=== PATIENT | female | born 1975 | race Caucasian/White ===

== ENCOUNTER → 2018-03-22 | Outpatient (CLI) | payer OTHER ==
--- NOTE | 2018-03-22 17:00 | Diagnostic Imaging Report ---
PROCEDURE:SKULL SERIES COMPLETE INDICATION:Dizziness. COMPARISON:None. FINDINGS: See conclusion. CONCLUSION: No displaced skull fracture visualized. Paranasal sinuses are well aerated. No air-fluid levels. If clinical symptoms persist, consider obtaining CT for better evaluation. Dictated by: Johnie Busby M.D. on 03/22/2018 at 17:03 Electronically approved by: Johnie Busby M.D. on 03/22/2018 at 17:03
== END ==
LOC: RAD 15:22
PROVIDERS: ATTEND Specialist
DX: R42 Dizziness and giddiness (principal)
CPT/HCPCS: 70260